=== PATIENT | female | born 1995 | race Two or more races ===

== ENCOUNTER 2023-11-07 11:18 | Emergency (ER) | payer SELFPAY ==
[~2023-11-07] VITALS: Ht 172.7 cm; Wt 77.2 kg
[2023-11-07 11:30] VITALS: BP 148/95; PULSE 78; RESP 18; O2SAT 99
[2023-11-07 15:18] LABS: Basophils # (auto) 0.1 10 ^3/uL (0-0.2); Basophils % (auto) 0.5 % (0.0-2.0); Eosinophils # (auto) 0.1 10 ^3/uL (0-0.8); Hematocrit 43.4 % (36.0-46.0); Hemoglobin 13.9 g/dL (12.2-16.2); Lymphocytes # (auto) 1.9 10 ^3/uL (0.4-5.4); Lymphocytes % (auto) 18.4 % (10.0-50.0); Mean Corpuscular Hemoglobin 27.8 pg (28.0-32.0); Mean Corpuscular Hgb Conc. 32.1 g/dL (32.0-36.0); Mean Corpuscular Volume 86.8 fL (80.0-100.0); Monocytes # (auto) 0.5 10 ^3/uL (0-1.3); Neutrophils # (auto) 7.6 10 ^3/uL (1.6-8.6); Neutrophils % (auto) 75.1 % (37.0-80.0); Red Cell Distribution Width 14.2 % (11.8-14.3); White Blood Cell 10.2 10^3/uL (4.4-10.8)
[2023-11-07 15:29] LABS: Chloride 107 mmol/L (98-107); Potassium 4.7 mmol/L (3.5-5.1); Sodium 139 mmol/L (136-145)
[2023-11-07 15:30] LABS: Anion Gap 3 (5-15); Calcium 9.7 mg/dL (8.5-10.1); Carbon Dioxide 29 mmol/L (20-30)
[2023-11-07 15:35] LABS: Blood Urea Nitrogen 9 mg/dL (9-23); Glucose 86 mg/dL (74-106)
[2023-11-07 15:36] LABS: Blood Alcohol < 3.0 mg/dL (<10)
[2023-11-07] MEDS ORDERED: NAPR-1334 PO (18:43)
[2023-11-07] MEDS ORDERED: CYCL-837 PO (18:44)
== END 2023-11-07 21:46 | disposition left against medical advice (07) ==
LOC: EDBD 11:18 → ER 11:18
DX: S06.0X0A Concussion without loss of consciousness, initial encounter (principal); R10.2 Pelvic and perineal pain; S00.03XA Contusion of scalp, initial encounter; S90.31XA Contusion of right foot, initial encounter; F17.210 Nicotine dependence, cigarettes, uncomplicated; F10.90 Alcohol use, unspecified, uncomplicated; F15.90 Other stimulant use, unspecified, uncomplicated; V43.52XA Car driver injured in collision with other type car in traffic accident, initial encounter; Y93.I9 Activity, other involving external motion; Y92.89 Other specified places as the place of occurrence of the external cause; Y99.8 Other external cause status; Y90.0 Blood alcohol level of less than 20 mg/100 ml
CPT/HCPCS: 36415; 70450; 71045; 72125; 73590; 73610; 73630; 80048; 80320; 84702; 85025

== ENCOUNTER 2025-06-13 17:11 | Emergency (ER) | payer SELFPAY ==
[~2025-06-13] VITALS: Ht 172.7 cm; Wt 74.5 kg
[~2025-06-13 17:11] MED LIST: CYCL-837 PO; NAPR-1335 PO
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
[2025-06-13] MEDS: KETOROLAC TROMETH 60MG/2ML VIAL IM ONE (18:27)
[2025-06-13 18:30] VITALS: BP 126/94; TEMP 98.5
[2025-06-13 18:31] VITALS: PULSE 69; RESP 10; O2SAT 97
== END 2025-06-13 18:41 | disposition home or self-care (01) ==
LOC: ER 17:11 → EDBD 17:11 → EDSEX 17:11 → ER 18:41
DX: S16.1XXA Strain of muscle, fascia and tendon at neck level, initial encounter (principal); S00.03XA Contusion of scalp, initial encounter; F10.90 Alcohol use, unspecified, uncomplicated; F12.90 Cannabis use, unspecified, uncomplicated; Z79.899 Other long term (current) drug therapy; F17.210 Nicotine dependence, cigarettes, uncomplicated; Y08.89XA Assault by other specified means, initial encounter; Y93.89 Activity, other specified; Y92.89 Other specified places as the place of occurrence of the external cause; Y99.8 Other external cause status; Y90.9 Presence of alcohol in blood, level not specified
CPT/HCPCS: 70450; 72125; 96372; 99285; J1885